=== PATIENT | male | born 1955 | race Caucasian/White ===

== ENCOUNTER 2018-02-27 07:39 | Day surgery (SDC) | payer MEDICARE, OTHER, SELFPAY ==
--- NOTE | 2018-02-27 | PATH_ITS ---
[facility] Accession Number: [id number] . 01 Material submitted: . POLYP AT HEPATIC FLEXURE . 02 Diagnosis: Polyp at Hepatic Flexure, Biopsy: Multiple fragments (x2) of tubular adenoma; negative for high-grade dysplasia. Multiple fragments (x2)of superficial colorectal mucosa with no diagnostic abnormality. MRV/02/28/2018 . 02 Electronically signed: . Paty Carrillo MD, Pathologist NPI- [id number] . 01 Gross description: . Received in one formalin-filled container labeled with the patient's name and labeled polyp hepatic flexure, are four less than 0.1 cm to 0.4 cm portions of tissue, entirely submitted in cassette A. ([id number]) /FRR . 02 Pathologist provided ICD-10: K63.5 . 02 CPT . 400570 Performed at: 01 [facility] [address] [facility], [place], [place] [id number] MD Hany Del Real MD Phone: [phone] Performed at: 02 [facility] [address] [place], [place] [id number] MD Golden Triana MD Phone: [phone]
[2018-02-27 09:17] VITALS: BP 138/79; PULSE 58; RESP 16; TEMP 36.3; O2SAT 97; BMI 25.0
[2018-02-27] MEDS: SODIUM CHLORIDE 0.9% 1,000 ML 200 ML IV (09:30)
--- NOTE | 2018-02-27 11:14 | PM.HP.1 ---
History of Present Illness Date Patient Seen: 02/27/18 Time Patient Seen: 11:14 Chief complaint: Colonoscopy; [id number] Narrative: Very pleasant gentleman here for a screening colonoscopy. He denies any problems or symptoms related to the function of his GI tract. His only complaint today is hunger. Patient History Family & Social History Family History: Reviewed 02/27/18 by Mary Broussard MD Social History: household members spouse Meds Home Medications Medication Instructions Recorded Confirmed Type carisoprodol 350 mg PO TID 02/27/18 02/27/18 History fluoxetine 40 mg PO DAILY 02/27/18 02/27/18 History gabapentin [Neurontin] 300 mg PO DAILY 02/27/18 02/27/18 History hydrocodone-acetaminophen 1 tab PO Q4-6H PRN 02/27/18 02/27/18 History simvastatin 20 mg PO QPM 02/27/18 02/27/18 History Allergies Allergy/AdvReac Type Severity Reaction Status Date / Time No Known Drug Allergies Allergy Verified 02/27/18 09:24 Review of Systems Review of Systems All systems reviewed & are unremarkable except as noted in HPI and below Exam Vital Signs (past 8 hours): - 02/27/18 09:17 Temperature 97.3 F L Pulse Rate 58 L Respiratory Rate 16 Blood Pressure 138/79 Pulse Oximetry 97 Oxygen Delivery Method Room Air Narrative Exam Narrative: Very pleasant, well-nourished well-developed gentleman in no distress. HEENT: Normocephalic and atraumatic, pupils equal round reactive to light accommodation with anicteric sclera Lungs: Clear to auscultation bilaterally Heart: Regular rate rhythm Abdomen: Soft, nontender, active bowel sounds Extremities: Warm well perfused Assessment & Plan Plan: Assessment/Plan Narrative: Very pleasant gentleman here for screening colonoscopy. We discussed the risks and benefits of the procedure and the patient expressed desire to complete it today
[2018-02-27] MEDS: fentaNYL 250 MCG/5 ML INJ IV (11:39)
--- NOTE | 2018-02-27 11:44 | PM.OP.1 ---
Operative Date/Time/Diagnoses Date of procedure: 02/27/18 Time of procedure: 11:44 Pre-op diagnosis: Screening Post-op diagnosis: same Procedure & Clinicians Procedure: Colonoscopy to the cecum with polypectomy x1 Same procedure as scheduled: Yes Indications: Last colonoscopy 5 years ago Surgeon: Mary Broussard Click Yes if Unassisted: Yes Anesthesia Type: Sedation (Versed 8 mg; fentanyl 250 mcg) Operative Notes Findings: 1. Excellent prep 2. A single 2-3 mm polyp at the hepatic flexure. It was removed with cold forceps and retained for pathology 3. Scattered diverticulosis limited to the sigmoid region. No false passages, no evidence of inflammation, no evidence of bleeding. 4. Otherwise normal mucosa throughout the colon 5. Grade 1 internal hemorrhoids. Closure Type: not applicable Estimated Blood Loss (mL): 1 Procedure in detail: After obtaining informed consent, the patient was brought to the GI suite and placed in the left lateral decubitus position on the examination table. After placement of appropriate monitors, the patient was given incremental doses of Versed and Fentanyl until an appropriate level of sedation was achieved. A time out was held per SCOAP protocol. A digital rectal examination was performed and did not reveal any masses or obstructing lesions. The colonoscope was gently passed into the patient's anus and the entire colon navigated to the level of the cecum with minimal difficulty. Once in the cecum, the scope was withdrawn being sure to go before and beyond all mucosal folds and prominences and get an excellent examination. The findings are noted above. At the level of the rectal vault, the scope was retroflexed and the internal anal canal was examined. The scope was straightened and air aspirated from the colon. The instrument was removed from the patient's body and the procedure was concluded. The patient was allowed to awaken from sedation without difficulty and taken to the post-anesthesia care unit in good condition. Total sedation time 32 min Total withdrawal time 9 min 27 sec Complications: none Condition: stable Disposition: PACU Plan for aftercare: 1. Discharge to home 2. Plan for next colonoscopy in 5-10 years depending upon pathology. 3. We will contact you with her pathology report and final recommendations.
[2018-02-27 11:50] VITALS: BP 132/83; PULSE 81; RESP 12; TEMP 36.8; O2SAT 96
[2018-02-27 12:10] VITALS: BP 122/76; PULSE 68; RESP 16; TEMP 36.6; O2SAT 98
== END 2018-02-27 12:16 | disposition home or self-care (01) ==
PROVIDERS: Family Provider Family Medicine; PCP Family Medicine; Visit Provider Surgery
PROC: 0DJD8ZZ Inspection of Lower Intestinal Tract, Via Natural or Artificial Opening Endoscopic (ICD-10-PCS; CPT 45378; principal; 2018-02-27 10:45)
DX: Z12.11 Encounter for screening for malignant neoplasm of colon (principal); K57.30 Diverticulosis of large intestine without perforation or abscess without bleeding; K64.0 First degree hemorrhoids; K63.5 Polyp of colon
CPT/HCPCS: 45380; 88305; 99152; 99153; J3010